=== PATIENT | female | born 1960 | race Caucasian/White ===

== ENCOUNTER 2021-01-13 10:34 | Emergency (ER) | payer OTHER ==
[2021-01-13 10:45] VITALS: BP 134/70; PULSE 70; RESP 18; TEMP 97.8
--- NOTE | 2021-01-13 18:56 | ED ---
Wound/Laceration HPI - General Chief Complaint: Wound/Laceration Stated Complaint: Lt Arm Lac Source: patient Mode of arrival: ambulatory Limitations: no limitations - History of Present Illness Initial Comments: 60-year-old female presenting to emergency Department with chief complaint of laceration. This occurred about one hour prior to arrival. Patient reports she accidentally use a clean knife on the anterior aspect of the left arm to cut something and it slipped causing a small laceration.reports minimal pain and bleeding. Tetanus is up-to-date. - Related Data Allergies Allergy/AdvReac Type Severity Reaction Status Date / Time acetaminophen [From Tylenol] Allergy Anaphylaxis Verified 01/13/21 10:45 Review of Systems ROS Statement: Those systems with pertinent positive or pertinent negative responses have been documented in the HPI. ROS Other: All systems not noted in ROS Statement are negative. Past Medical History Past Medical History: No Reported History Past Surgical History: Hysterectomy Past Psychological History: No Psychological Hx Reported Smoking Status: Former smoker Past Alcohol Use History: Occasional Past Drug Use History: None Reported General Exam Limitations: no limitations General appearance: alert, in no apparent distress Head exam: Present: atraumatic, normocephalic, normal inspection Eye exam: Present: normal appearance Pupils: Present: normal accommodation ENT exam: Present: normal exam, normal oropharynx, mucous membranes moist Neck exam: Present: normal inspection, full ROM Respiratory exam: Present: normal lung sounds bilaterally. Absent: respiratory distress, wheezes Cardiovascular Exam: Present: regular rate, normal rhythm, normal heart sounds Extremities exam: Present: full ROM, normal capillary refill. Absent: normal inspection (1 cm laceration on the ventral aspect of the left midforearm), tenderness, pedal edema, joint swelling Back exam: Present: normal inspection, full ROM. Absent: tenderness, CVA tenderness (R), CVA tenderness (L) Neurological exam: Present: alert, oriented X3 Psychiatric exam: Present: normal affect, normal mood Skin exam: Present: warm, dry, intact, normal color Course Vital Signs 01/13/21 10:42 Temperature 97.8 F Pulse Rate 70 Respiratory 18 Rate Blood Pressure 134/70 O2 Sat by Pulse 99 Oximetry Medical Decision Making - Medical Decision Making 60-year-old female presenting to the emergency room with a chief complaint of laceration. Laceration site was thoroughly irrigated and repaired with one suture. Patient started procedure well. Tetanus is up-to-date. Return parameters discussed the patient on sending agreeable. Case discussed with physician. Disposition Clinical Impression: Laceration Disposition: HOME SELF-CARE Condition: Stable Instructions (If sedation given, give patient instructions): Care For Your Stitches (ED), Laceration (ED) Additional Instructions: PlPlease return to the emergency room in 8-10 days to have sutures removed. Please watch for any signs of infection which may include increased pain, swe lling, redness, fever or chills. Please return to emergency room for any signs of infection do occur. Please use clean soap and water over the area to prevent scabbing over your stitches. Please leave wound covered for the first 24-48 hours and then leave wound open to air. Please return to the emergency room for any other concerns. Is patient prescribed a controlled substance at d/c from ED?: No Referrals: Nazario Gagnon DO [Primary Care Provider] - 1-2 days Time of Disposition: 10:42
== END 2021-01-13 11:32 | disposition home or self-care (01) ==
LOC: EC 10:34
DX: S41.112A Laceration without foreign body of left upper arm, initial encounter (principal); Z88.6 Allergy status to analgesic agent; Z90.710 Acquired absence of both cervix and uterus; Z87.891 Personal history of nicotine dependence; W26.0XXA Contact with knife, initial encounter
CPT/HCPCS: 12001; 99282